=== PATIENT | male | born 1980 | race Caucasian/White ===

== ENCOUNTER 2022-05-31 08:40 | Inpatient (IN) | payer SELFPAY ==
[~2022-05-31] VITALS: Ht 167.6 cm; Wt 85.0 kg
[~2022-05-31 08:40] MED LIST: PERCOCET 325 MG1 TA2 PO
[2022-05-31 09:19] LABS: HEMATOCRIT 42.7 % (42.0-52.0); HEMOGLOBIN 14.6 g/dl (13.5-18.0); MEAN CELL VOLUME 86 fl (80.0-100.0); MEAN CORPUSCULAR HEMOGLOBIN 29 pg (27-31); MEAN CORPUSCULAR HGB CONC 34 g/dl (33.0-37.0); MEAN PLATELET VOLUME 11.3 fl (7.4-10.4); PLATELET COUNT 188 K/mm3 (130-400); RED BLOOD COUNT 4.98 M/mm3 (4.20-5.60); REDCELL DISTRIBUTION WIDTH-CV 13.2 % (11.5-14.5)
[2022-05-31 09:42] LABS: ALBUMIN 3.5 gm/dL (3.5-5.0); BILIRUBIN,TOTAL 0.9 mg/dL (0.2-1.2); CALCIUM 9.6 mg/dL (8.4-10.2); CREATININE, serum 1.1 mg/dL (0.72-1.25); POTASSIUM 4.1 mmol/L (3.5-4.5); TOTAL PROTEIN 7.5 gm/dL (6.2-8.1)
[2022-05-31 09:47] LABS: C-REACTIVE PROTEIN 39.21 mg/dL (0.00-0.50)
[2022-05-31 10:01] LABS: BAND 15 % (0-10); LYMPHOCYTE 7 % (20.0-51.0); NEUTROPHILS 75 % (42.0-75.2); OVALOCYTES 1+; PLATELET ESTIMATE NORMAL (NORMAL)
[2022-05-31 10:18] LABS: COLLECTION METHOD CLEAN CATCH
[2022-05-31 10:47] LABS: URINE BACTERIA Rare /hpf (NONE SEEN); URINE RBC 0-2 /hpf (0-2)
[2022-05-31 10:50] LABS: PH 7.5 (5-8); URINE APPEARANCE Hazy (CLEAR/HAZY); URINE COLOR Yellow (YELLOW); URINE GLUCOSE Negative (NEGATIVE); URINE KETONE 2+ (NEGATIVE); URINE NITRATE Negative (NEGATIVE); URINE PROTEIN(semi-quant) 2+ (NEGATIVE); URINE UROBILINOGEN 0.2 (NEGATIVE)
[2022-05-31 10:51] LABS: URINE BLOOD TRACE-LYSED (NEGATIVE)
[2022-05-31] MEDS ORDERED: AMOXICILLIN 8751 TAB PO (12:50)
[2022-05-31] MEDS ORDERED: TYLENOL 325MG325 MG PO (12:51)
[2022-05-31 13:03] VITALS: BP 127/80; PULSE 78; TEMP 99.3
--- NOTE | 2022-05-31 14:38 | NUR ---
PATIENT COMPLAINING OF ITCHING TO UPPER BACK AND NECK. SLIGHTLY RED ON APPEARANCE, COULD BE FROM PATIENT CONTINUOUSLY SCRATCHING. MURTAZA MOTA NOTIFIED. NO NEW ORDERS AT THIS TIME.
--- NOTE | 2022-05-31 15:00 | NUR ---
Vancomycin Initial Dosing Pharmacy Note Ordering provider: Renzo Davila MD Indication/duration: Skin/Soft tissue infection, 7 days LABS: SCr 1.1, CrCl~78, GFR 86 Recommendation: Continue Vancomycin 1 gm IV q8h. Pharmacy will continue to closely monitor and check a trough on 06/02/22. Loading dose: 2 grams Maintenance dose: 1 gram every 8 hours Trough goal: 10-15 ug/mL
[2022-05-31 16:35] VITALS: BP 131/81; PULSE 97; TEMP 100.6
[2022-05-31 19:43] VITALS: BP 129/67; PULSE 108; TEMP 99.6
[2022-05-31 23:50] VITALS: BP 136/77; PULSE 92; TEMP 99.2
[2022-06-01 04:19] VITALS: BP 109/70; PULSE 73; TEMP 98.4
--- NOTE | 2022-06-01 06:04 | NUR ---
PATIENT HAS HAD AN UNEVENTFUL NIGHT. PATIENT STATES HE IS NOW ABLE TO WALK AND WAS UNABLE TO EARLIER IN THE DAY. PATIENT STATES HE FEELS MUCH BETTER AND STATES HE WOULD LIKE TO HAVE A SHOWER ON AM SHIFT. PATIENT DENIES PAIN, NEEDS AND CONCERNS. PATIENT HAS CALL LIGHT IN REACH AND HAS BEEN APPROPRIATELY CALLING WITH NEEDS.
[2022-06-01 06:37] LABS: MEAN CELL VOLUME 84 fl (80.0-100.0); MEAN CORPUSCULAR HGB CONC 34 g/dl (33.0-37.0); MEAN PLATELET VOLUME 11.5 fl (7.4-10.4); PLATELET COUNT 178 K/mm3 (130-400); RED BLOOD COUNT 4.37 M/mm3 (4.20-5.60); REDCELL DISTRIBUTION WIDTH-CV 13.2 % (11.5-14.5)
[2022-06-01 06:57] LABS: CALCIUM 8.5 mg/dL (8.4-10.2); CREATININE, serum 1.01 mg/dL (0.72-1.25); POTASSIUM 3.8 mmol/L (3.5-4.5)
[2022-06-01 07:02] LABS: HEMATOCRIT 36.8 % (42.0-52.0); HEMOGLOBIN 12.5 g/dl (13.5-18.0); MEAN CORPUSCULAR HEMOGLOBIN 29 pg (27-31)
[2022-06-01 07:29] VITALS: BP 118/76; PULSE 73; TEMP 98.8
[2022-06-01 07:56] LABS: BAND 1 % (0-10); BASOPHIL 1 % (0-2); EOSINOPHIL 2 % (0-4); LYMPHOCYTE 6 % (20.0-51.0); METAMYELOCYTE 2 % (0-0); NEUTROPHILS 80 % (42.0-75.2); PLATELET ESTIMATE NORMAL (NORMAL)
[2022-06-01 11:16] VITALS: BP 126/81; PULSE 83; TEMP 98.8
--- NOTE | 2022-06-01 12:28 | NUR ---
SW met with patient to complete intake. Patient states that he lives in [facility] with his Marcy Jean [phone]. Patient does not use DME, is independent with ADL's and does not utilize HH at this time. Patient does not have a PCP, SW provided listed documentation on local PCP to contact for f/u services if needed. [facility]. Patient plans to return to his home upon DC. SW will continue to follow. DC plan: home
--- NOTE | 2022-06-01 12:43 | NUR ---
Cobbler Sole rounds: Cobbler Sole visit completed. Patient had visitors present during business office technology instructor visit. Patient is Voodoo. Patient was offered and he accepted a rosary. Cobbler Sole prayed for Patient.
[2022-06-01 15:24] VITALS: BP 116/81; PULSE 81; TEMP 99.6
[2022-06-01 20:01] VITALS: BP 131/86; PULSE 76; TEMP 99
[2022-06-01 23:47] VITALS: BP 114/78; PULSE 87; TEMP 99.3
[2022-06-02 04:34] VITALS: BP 115/81; PULSE 72; TEMP 99.1
--- NOTE | 2022-06-02 06:21 | NUR ---
PATIENT HAS HAD AN UNEVENTFUL NIGHT. PATIENT HAS DENIED NEEDS OR CONCERNS. CALL LIGHT IS WITHIN REACH OF PATIENT AND PATIENT IS ENCOURAGED TO CALL WITH ANY NEEDS OR CONCERNS. PATIENT EXPRESSES APPRECIATION.
[2022-06-02 06:33] LABS: BASO # 0.1 K/mm3 (0.0-0.2); BASO % 0.5 % (0.0-2.0); EOS # 0.3 K/mm3 (0.0-0.7); EOS % 1.9 % (0.0-4.0); GRAN # 9.9 K/mm3 (1.4-6.5); GRAN % 72.7 % (42.2-75.2); HEMATOCRIT 38.2 % (42.0-52.0); LYMPH # 2.2 K/mm3 (1.2-3.4); LYMPH % 16.2 % (20.0-51.0); MEAN CELL VOLUME 88 fl (80.0-100.0); MEAN CORPUSCULAR HEMOGLOBIN 30 pg (27-31); MEAN CORPUSCULAR HGB CONC 34 g/dl (33.0-37.0); MEAN PLATELET VOLUME 11.6 fl (7.4-10.4); MONO # 1.1 K/mm3 (0.1-0.6); MONO % 7.9 % (1.7-9.3); PLATELET COUNT 211 K/mm3 (130-400); RED BLOOD COUNT 4.36 M/mm3 (4.20-5.60); REDCELL DISTRIBUTION WIDTH-CV 13.5 % (11.5-14.5)
[2022-06-02 07:10] VITALS: BP 131/83; PULSE 72; TEMP 98
[2022-06-02 11:27] VITALS: BP 161/90; PULSE 81; TEMP 97.9
[2022-06-02 15:17] VITALS: BP 145/85; PULSE 77; TEMP 99
--- NOTE | 2022-06-02 16:11 | NUR ---
Creel Cleaner delivered patient list of PCPs for his review to establish outpatient primary care services. He expressed gratitude and has no further questions at this time. He will start to make contacts. Creel Cleaner remains available as needed.
--- NOTE | 2022-06-02 19:14 | NUR ---
PATIENT IS SITTING ON COUCH IN ROOM WITH HIS FAMILY. PATIENT STATES HE HAD A VERY GOOD DAY AND IS FEELING MUCH BETTER. PATIENT DENIES PAIN, NEEDS OR CONCERNS AT THIS TIME. PATIENT HAS CALL LIGHT WITHIN REACH AND IS ENCOUARAGED TO USE WITH ANY NEEDS OR CONCERNS. PATIENT STATES UNDERSTANDING.
[2022-06-02 20:30] VITALS: BP 147/93; PULSE 71; TEMP 99
[2022-06-03 00:04] VITALS: BP 140/81; PULSE 73; TEMP 99
[2022-06-03 04:05] VITALS: BP 127/82; PULSE 87; TEMP 97.6
--- NOTE | 2022-06-03 05:42 | NUR ---
PATIENT HAD AN UNEVENTFUL NIGHT. PATIENT DENIES PAIN, NEEDS OR CONCERNS. PATIENT HAS CALL LIGHT WITHIN REACH. PATIENT ENCOURAGED TO USE WITH NEED OR CONCERNS. PATIENT STATES UNDERSTANDING.
[2022-06-03 06:49] LABS: BASO # 0.1 K/mm3 (0.0-0.2); BASO % 0.9 % (0.0-2.0); EOS # 0.3 K/mm3 (0.0-0.7); EOS % 3.3 % (0.0-4.0); GRAN # 6.8 K/mm3 (1.4-6.5); GRAN % 65.2 % (42.2-75.2); HEMATOCRIT 39.8 % (42.0-52.0); HEMOGLOBIN 13.3 g/dl (13.5-18.0); LYMPH % 18.8 % (20.0-51.0); MEAN CELL VOLUME 86 fl (80.0-100.0); MEAN CORPUSCULAR HEMOGLOBIN 29 pg (27-31); MEAN CORPUSCULAR HGB CONC 33 g/dl (33.0-37.0); MONO # 1.1 K/mm3 (0.1-0.6); MONO % 10.3 % (1.7-9.3); PLATELET COUNT 281 K/mm3 (130-400); RED BLOOD COUNT 4.61 M/mm3 (4.20-5.60); REDCELL DISTRIBUTION WIDTH-CV 13.4 % (11.5-14.5)
[2022-06-03] MEDS ORDERED: BACTRIM DS 8001 TAB PO (07:26)
[2022-06-03 07:55] VITALS: BP 138/94; PULSE 67; TEMP 98.5
--- NOTE | 2022-06-03 08:03 | NUR ---
Patient is resting in bed, with aside, alert and oriented x 4, VSS. States no pain. Indicates that penis is less swollen and feels better. Assessment completed, meds provided. No other needs at this time. Call light within reach.
[2022-06-03 12:04] VITALS: BP 140/90; PULSE 74; TEMP 98.4
--- NOTE | 2022-06-03 12:25 | NUR ---
Loading Machine Operator met with patient who is ready for discharge home today. SW spoke with patient about [facility] and he is agreeable to follow up there as he is self pay. 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 ALETHEA advised [facility] may inquire about his income and patient verbalized understanding. ALETHEA made appointment for 06/12/22 @[id number] and provided appointment to window unit air conditioning mechanic. Discharge Plan: Home
--- NOTE | 2022-06-03 12:32 | NUR ---
Patient and were provided with discharge information. All questions answered. IV ACCESS removed.
== END 2022-06-03 12:34 | disposition home or self-care (01) | DRG 872 ==
LOC: COL.ER 08:40 → MEDICAL 12:15
PROVIDERS: Emergency Medicine; ADMIT Internal Medicine
DX: A41.9 Sepsis, unspecified organism (principal); N48.22 Cellulitis of corpus cavernosum and penis; D72.829 Elevated white blood cell count, unspecified; Z20.822 Contact with and (suspected) exposure to COVID-19; N48.1 Balanitis
CPT/HCPCS: J2405; J2543; J3370; J7030; J7040; J7050; J7120